=== PATIENT | male | born 1940 | race Caucasian/White ===

== ENCOUNTER 2019-07-29 17:41 | Inpatient (IN) | payer MEDICARE, OTHER ==
[~2019-07-29] VITALS: Ht 177.8 cm; Wt 94.0 kg
[2019-07-29 18:12] LABS: BASOPHILS # (AUTO) 0.1 X10'3 (0-0.2); BASOPHILS % (AUTO) 0.8 % (0-1); EOSINOPHILS # (AUTO) 0.1 X10'3 (0-0.9); EOSINOPHILS % (AUTO) 1.3 % (0-6); HEMATOCRIT 39.9 % (42.0-52.0); HEMOGLOBIN 13.4 g/dl (14.0-17.9); LYMPHOCYTES # (AUTO) 2.1 X10'3 (1.1-4.8); LYMPHOCYTES % (AUTO) 21.7 % (21-51); MEAN CORPUSCULAR HEMOGLOBIN 30.7 PG (27.0-31.0); MEAN CORPUSCULAR HGB CONC 33.7 g/dL (33.0-36.5); MEAN CORPUSCULAR VOLUME 91.3 FL (78-98); MEAN PLATELET VOLUME 9.5 FL (7.4-10.4); MONOCYTES # (AUTO) 0.8 X10'3 (0-0.9); MONOCYTES % (AUTO) 8.5 % (2-12); NEUTROPHILS # (AUTO) 6.6 X10'3 (1.8-7.7); NEUTROPHILS % (AUTO) 67.7 % (42-75); PLATELET COUNT 183 X10'3 (140-440); RED BLOOD COUNT 4.36 X10'6 (4.70-6.10); RED CELL DISTRIBUTION WIDTH 13.6 % (11.5-14.5); WHITE BLOOD COUNT 9.8 X10'3 (4.5-11.0)
[2019-07-29 18:27] LABS: ALANINE AMINOTRANSFERASE 20 U/L (12-78); ALBUMIN 3.7 G/DL (3.4-5.0); ALBUMIN/GLOBULIN RATIO 1.1 (1.1-1.5); ALKALINE PHOSPHATASE 103 IU/L (46-116); ANION GAP 7 (8-16); ASPARTATE AMINO TRANSFERASE 13 U/L (10-37); BILIRUBIN,TOTAL 0.2 MG/DL (0.1-1.0); BLOOD UREA NITROGEN 18 MG/DL (7-18); BUN/CREATININE RATIO 20.5 (5.4-32.0); CHLORIDE 110 MMOL/L (99-107); CREATININE 0.88 MG/DL (0.60-1.10); GLUCOSE 145 MG/DL (70-104); POTASSIUM 4.2 MMOL/L (3.5-5.1); SODIUM 145 MMOL/L (135-145); TOTAL CARBON DIOXIDE 27.8 MMOL/L (24-32); eGFR 84 ML/MIN
[2019-07-29] MEDS ORDERED: MAG355OR18 PO (22:04)
[2019-07-29] MEDS ORDERED: normal saline 1000ml 1,000 ML IV SCH (22:16)
[2019-07-29] MEDS ORDERED: glucagon, human recombinant 1mg kit SUBCUT PRN (22:20)
[2019-07-29] MEDS ORDERED: MESSAGE TO PHARMACY PO ONE (22:20)
[2019-07-29] MEDS ORDERED: mag hydrox/Alum hydrox/simeth 30ml oral suspension PO PRN (22:20)
[2019-07-29] MEDS ORDERED: acetaminophen 325mg tablet PO PRN (22:20)
[2019-07-29] MEDS ORDERED: ondansetron/PF 4mg/2ml inj IV PRN (22:20)
[2019-07-29] MEDS ORDERED: aminophylline 250mg/10ml inj. IV PRN (22:20)
[2019-07-29] MEDS ORDERED: metoprolol tartrate 1mg/ml inj IV PRN (22:20)
[2019-07-29] MEDS ORDERED: nitroGLYCERIN 0.4mg SUBLingual tab SL PRN (22:20)
[2019-07-29] MEDS ORDERED: insulin Lispro (HumaLOG) vial - multi-dose SQ SCH (22:20)
[2019-07-29] MEDS ORDERED: regadenoson 0.4mg/5ml syringe IV PRN (22:20)
[2019-07-29] MEDS ORDERED: dextrose ORAL solution 15 GM/59 ML bottle PO PRN ×2 (22:20)
[2019-07-29] MEDS ORDERED: magnesium hydroxide 30ml (MOM) UD suspension PO PRN (22:20)
[2019-07-29] MEDS ORDERED: dextrose 50%-water 50ml dispensing syringe IV PRN ×2 (22:20)
[2019-07-29] MEDS ORDERED: AMLO2.5T2 PO (22:29)
[2019-07-29] MEDS ORDERED: TERA2CAP4 PO (22:29)
[2019-07-29] MEDS ORDERED: METF500T PO (22:29)
[2019-07-29 22:47] LABS: HEMOGLOBIN A1C 6.3 % (4.5-6.2)
[2019-07-29 23:00] VITALS: BP 127/79
--- NOTE | 2019-07-29 23:15 | NUR ---
Patient in room PCU 3014. I have received report from Leoncio AGUILAR and had the opportunity to ask questions and assume patient care.
--- NOTE | 2019-07-29 23:30 | NUR ---
pt came up from [facility] in wheelchair, AAOx4, RA, walk to the bed, no c/o chestpain, vital sign WNL
[2019-07-30] VITALS (11 sets, daily range): BP systolic 92–149; BP diastolic 47–76
--- NOTE | 2019-07-30 02:13 | NUR ---
pt stated that brought wallet that has credit card and 8 dollar [place] which he put in the drawer at bedside. He refused to put his wallet in the safe after RN explained the protocol to him.
--- NOTE | 2019-07-30 02:51 | NUR ---
pt stated he lost 20lbs in the last 3 years by walking Addendum: 07/30/19 at 0309 by Lynn Vann RN Amended: Links added.
[2019-07-30 06:30] LABS: BASOPHILS % (AUTO) 0.3 % (0-1); EOSINOPHILS # (AUTO) 0.1 X10'3 (0-0.9); EOSINOPHILS % (AUTO) 1.1 % (0-6); HEMATOCRIT 38.4 % (42.0-52.0); LYMPHOCYTES # (AUTO) 1.4 X10'3 (1.1-4.8); LYMPHOCYTES % (AUTO) 14.2 % (21-51); MEAN CORPUSCULAR HEMOGLOBIN 30.8 PG (27.0-31.0); MEAN CORPUSCULAR HGB CONC 33.8 g/dL (33.0-36.5); MEAN PLATELET VOLUME 9.6 FL (7.4-10.4); MONOCYTES # (AUTO) 0.9 X10'3 (0-0.9); MONOCYTES % (AUTO) 9.4 % (2-12); NEUTROPHILS # (AUTO) 7.3 X10'3 (1.8-7.7); PLATELET COUNT 157 X10'3 (140-440); RED BLOOD COUNT 4.22 X10'6 (4.70-6.10); RED CELL DISTRIBUTION WIDTH 13.2 % (11.5-14.5); WHITE BLOOD COUNT 9.8 X10'3 (4.5-11.0)
--- NOTE | 2019-07-30 06:38 | NUR ---
Problems reprioritized. Patient report given, questions answered & plan of care reviewed with Opal RN.
[2019-07-30 06:41] LABS: ALANINE AMINOTRANSFERASE 17 U/L (12-78); ALBUMIN 3.1 G/DL (3.4-5.0); ALKALINE PHOSPHATASE 81 IU/L (46-116); ANION GAP 9 (8-16); ASPARTATE AMINO TRANSFERASE 17 U/L (10-37); BILIRUBIN,TOTAL 0.5 MG/DL (0.1-1.0); BLOOD UREA NITROGEN 15 MG/DL (7-18); BUN/CREATININE RATIO 18.3 (5.4-32.0); CALCIUM 8.2 MG/DL (8.5-10.1); CHLORIDE 109 MMOL/L (99-107); CREATININE 0.82 MG/DL (0.60-1.10); GLUCOSE 116 MG/DL (70-104); POTASSIUM 3.7 MMOL/L (3.5-5.1); SODIUM 143 MMOL/L (135-145); TOTAL CARBON DIOXIDE 25.3 MMOL/L (24-32); TOTAL PROTEIN 6.2 G/DL (6.4-8.2); eGFR > 90 ML/MIN
[2019-07-30 06:44] LABS: CHOL/HDL RATIO 2.9 (0.00-4.99); CHOLESTEROL 112 MG/DL (0-200); HDL CHOLESTEROL 39 MG/DL (35-60); LDL CHOLESTEROL 72 MG/DL (50-100); TRIGLYCERIDES 50 MG/DL (20-135)
--- NOTE | 2019-07-30 07:04 | NUR ---
Patient in room PCU 3014. I have received report from LAUREN Bailey and had the opportunity to ask questions and assume patient care.
[2019-07-30] MEDS: heparin, porcine 5000 units/ml vial SQ SCH ×2 (08:19→19:32)
[2019-07-30] MEDS ORDERED: DORZ10DR10 EACHEYE (11:01)
[2019-07-30] MEDS ORDERED: METF-516 PO (11:01)
[2019-07-30] MEDS ORDERED: XAL0.005OS EACHEYE (11:01)
--- NOTE | 2019-07-30 14:22 | NUR ---
Sent to Dr Harley PAGER ID: [phone] MESSAGE: RE: Dietary not sending food for pt because he does not have a diet order. -Opal 9185
--- NOTE | 2019-07-30 17:27 | NUR ---
Sent to Dr Harley PAGER ID: [phone] MESSAGE: RE: Kirsten Hamilton [id number]. Negative Lexiscan. EF 65%. -Opal 3325
--- NOTE | 2019-07-30 18:20 | NUR ---
Problems reprioritized. Patient report given, questions answered & plan of care reviewed with LAUREN Wright.
--- NOTE | 2019-07-30 18:37 | NUR ---
Patient in room PCU 3014. I have received report from Opal AGUILAR and had the opportunity to ask questions and assume patient care.
[2019-07-31 03:00] VITALS: BP 121/70
[2019-07-31 05:00] LABS: BASOPHILS % (AUTO) 0.4 % (0-1); EOSINOPHILS # (AUTO) 0.2 X10'3 (0-0.9); EOSINOPHILS % (AUTO) 2.2 % (0-6); HEMATOCRIT 36.7 % (42.0-52.0); HEMOGLOBIN 12.5 g/dl (14.0-17.9); LYMPHOCYTES % (AUTO) 27.5 % (21-51); MEAN CORPUSCULAR HEMOGLOBIN 30.9 PG (27.0-31.0); MEAN CORPUSCULAR HGB CONC 34.2 g/dL (33.0-36.5); MEAN CORPUSCULAR VOLUME 90.5 FL (78-98); MEAN PLATELET VOLUME 9.6 FL (7.4-10.4); MONOCYTES # (AUTO) 0.7 X10'3 (0-0.9); MONOCYTES % (AUTO) 9.4 % (2-12); NEUTROPHILS # (AUTO) 4.4 X10'3 (1.8-7.7); NEUTROPHILS % (AUTO) 60.5 % (42-75); PLATELET COUNT 158 X10'3 (140-440); RED BLOOD COUNT 4.05 X10'6 (4.70-6.10); RED CELL DISTRIBUTION WIDTH 13.4 % (11.5-14.5); WHITE BLOOD COUNT 7.2 X10'3 (4.5-11.0)
[2019-07-31 05:10] LABS: ALANINE AMINOTRANSFERASE 11 U/L (12-78); ALKALINE PHOSPHATASE 81 IU/L (46-116); ANION GAP 8 (8-16); ASPARTATE AMINO TRANSFERASE 11 U/L (10-37); BILIRUBIN,TOTAL 0.4 MG/DL (0.1-1.0); BLOOD UREA NITROGEN 16 MG/DL (7-18); BUN/CREATININE RATIO 19.3 (5.4-32.0); CALCIUM 8.5 MG/DL (8.5-10.1); CHLORIDE 109 MMOL/L (99-107); CREATININE 0.83 MG/DL (0.60-1.10); GLUCOSE 114 MG/DL (70-104); POTASSIUM 3.5 MMOL/L (3.5-5.1); SODIUM 142 MMOL/L (135-145); TOTAL CARBON DIOXIDE 25.5 MMOL/L (24-32); eGFR 89 ML/MIN
[2019-07-31 06:00] VITALS: BP 154/113
--- NOTE | 2019-07-31 06:07 | NUR ---
Problems reprioritized. Patient report given, questions answered & plan of care reviewed with Betzy AGUILAR.
--- NOTE | 2019-07-31 06:10 | NUR ---
Patient in room U 3014B. I have received report from Adriana AGUILAR and had the opportunity to ask questions and assume patient care. Patient laying in bed, eyes closed.
--- NOTE | 2019-07-31 06:16 | NUR ---
[place] documentation: I have reviewed and agree with all interventions, assessments performed and documented by Moris AGUILAR.
[2019-07-31] MEDS: heparin, porcine 5000 units/ml vial SQ SCH (08:36)
[2019-07-31] MEDS ORDERED: AMLO10TA4 PO (10:22)
--- NOTE | 2019-07-31 10:55 | NUR ---
Per MD order, Dr. Harley, patient is stable for discharge. Discharge packet printed and reviewed with patient. Diabetic survival skills reviewed with patient and family. Tele monitor removed, IV removed with cannula intact. Medications returned from pharmacy. Patient discharged home with all belongings. Escorted to private vehicle via wheelchair to go home with son.
--- NOTE | 2019-07-31 11:23 | NUR ---
[place] documentation: I have reviewed and agree with all interventions, assessments performed and documented by Carlota AGUILAR [place] Medication Administration: For this medication-pass time frame, all medication were reviewed, dispensed, administered and documented per hospital policy by Carlota AGUILAR.
== END 2019-07-31 11:08 | disposition home or self-care (01) | DRG 311 ==
LOC: ER 17:42 → ED HOLD 22:30 → PCU 3S 23:28
PROVIDERS: ADMIT Internal Medicine; ATTEND Internal Medicine
PROC: 4A02XM4 Measurement of Cardiac Total Activity, External Approach (ICD-10-PCS; principal; 2019-07-30)
PROC: 3E033HZ Introduction of Radioactive Substance into Peripheral Vein, Percutaneous Approach (ICD-10-PCS; 2019-07-30)
DX: I20.0 Unstable angina (principal); I10 Essential (primary) hypertension; E11.9 Type 2 diabetes mellitus without complications; N40.0 Benign prostatic hyperplasia without lower urinary tract symptoms; Z79.84 Long term (current) use of oral hypoglycemic drugs; Z79.899 Other long term (current) drug therapy; Z87.891 Personal history of nicotine dependence; Z91.19 Patient's noncompliance with other medical treatment and regimen; Z98.41 Cataract extraction status, right eye; Z88.5 Allergy status to narcotic agent
CPT/HCPCS: 36415; 71045; 78452; 80053; 80061; 82948; 83036; 84484; 85025; 87081; 93005; 93017; 93306; 99285; A9500; G0378; J1644; J1815; J2785; J7030